=== PATIENT | female | born 1970 | race Caucasian/White ===

== ENCOUNTER 2017-12-22 01:22 | Emergency (ER) | payer OTHER ==
[~2017-12-22] VITALS: Ht 154.9 cm; Wt 70.3 kg
[2017-12-22 01:45] LABS: ABSOLUTE BASOPHILS 0.1 thou/uL (0.0-0.2); ABSOLUTE EOSINOPHILS 0.2 thou/uL (0.0-0.7); ABSOLUTE LYMPHOCYTES 3.4 thou/uL (0.8-5.3); ABSOLUTE MONOCYTES 0.4 thou/uL (0.0-1.2); ABSOLUTE NEUTROPHILS 2.9 thou/uL (1.6-8.1); EOSINOPHILS 2.6 %; HEMATOCRIT 43.9 % (37.0-47.0); HEMOGLOBIN 15.1 gm/dL (12.0-15.0); LYMPHOCYTES 48.6 %; MCHC 34.4 g/dL (28.0-37.0); MONOCYTES 6.4 %; MPV 9.4 fl. (7.2-11.1); NUCLEATED RBCS 0 /100WBC; PLATELET COUNT* 169 thou/uL (150-400); POLYS 41.4 %; RBC 4.72 mil/uL (4.20-5.00); RDW-CV 13.4 % (10.5-14.5)
[2017-12-22 02:05] LABS: ANION GAP 8 mmol/L (7-16); BUN 21 mg/dL (7-18); CALCIUM 8.7 mg/dL (8.5-10.1); CHLORIDE 106 mmol/L (98-107); CO2 26 mmol/L (21-32); CREATININE 0.9 mg/dL (0.6-1.3); GLUCOSE 103 mg/dL (70-99); POTASSIUM 3.8 mmol/L (3.5-5.1); SODIUM 140 mmol/L (136-145)
[2017-12-22 02:16] LABS: ALBUMIN 3.5 g/dL (3.4-5.0); ALKALINE PHOSPHATASE 50 U/L (46-116); LIPASE 264 U/L (73-393); NT-PRO BRAIN NAT PEPTIDE 72 pg/mL (<300); SGOT 24 U/L (15-37); SGPT 38 U/L (30-65); TOTAL BILIRUBIN 0.4 mg/dL (<0.1-1.0); TOTAL PROTEIN 6.6 g/dL (6.4-8.2); TROPONIN-I LEVEL <0.06 ng/mL (<0.06)
[2017-12-22 02:43] LABS: URINE BILIRUBIN NEGATIVE (Negative); URINE BLOOD NEGATIVE (Negative); URINE CLARITY CLEAR; URINE COLOR YELLOW; URINE GLUCOSE-RANDOM NEGATIVE (Negative); URINE KETONES NEGATIVE (Negative); URINE LEUKOCYTES-REFLEX NEGATIVE (Negative); URINE NITRITE-REFLEX NEGATIVE (Negative); URINE PROTEIN NEGATIVE (Negative); URINE SPECIFIC GRAVITY <= 1.005 (1.005-1.030); URINE UROBILINOGEN 0.2 E.U./dl (0.2-1.0)
[2017-12-22 02:52] LABS: AMP/METHAMP Negative (Negative); BARBITURATES Negative (Negative); BENZODIAZEPINES Negative (Negative); COCAINE Negative (Negative); METHADONE Negative (Negative); OPIATES POSITIVE (Negative); PCP Negative (Negative); THC Negative (Negative)
[2017-12-22] MEDS ORDERED: HYDROCODONE-AP1 EAC6 PO (05:58)
[2017-12-22] MEDS ORDERED: FLEXERIL PO (05:58)
[2017-12-22 06:15] VITALS: BP 121/62
[2017-12-22] MEDS ORDERED: IBUPROFEN 800800 MG PO (20:46)
--- NOTE | 2017-12-23 10:24 | EKG ---
[place] [address] ELECTROCARDIOGRAM REPORT Name: THOMAS MCCARTNEY Room: 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
== END 2017-12-22 06:15 | disposition home or self-care (01) ==
LOC: M.ERS 01:22
PROVIDERS: Emergency Medicine
DX: R07.89 Other chest pain (principal); F17.210 Nicotine dependence, cigarettes, uncomplicated; Z90.49 Acquired absence of other specified parts of digestive tract; Z98.890 Other specified postprocedural states; Z88.7 Allergy status to serum and vaccine

== ENCOUNTER 2017-12-22 17:42 | Emergency (ER) | payer OTHER ==
[~2017-12-22] VITALS: Ht 154.9 cm; Wt 70.3 kg
[~2017-12-22 17:42] MED LIST: FLEXERIL PO; HYDROCODONE-AP1 EAC6 PO
[2017-12-22 18:07] LABS: ABSOLUTE EOSINOPHILS 0.2 thou/uL (0.0-0.7); ABSOLUTE LYMPHOCYTES 2.4 thou/uL (0.8-5.3); ABSOLUTE MONOCYTES 0.3 thou/uL (0.0-1.2); ABSOLUTE NEUTROPHILS 3.2 thou/uL (1.6-8.1); BASOPHILS 0.7 %; EOSINOPHILS 2.6 %; HEMATOCRIT 45.2 % (37.0-47.0); HEMOGLOBIN 15.5 gm/dL (12.0-15.0); LYMPHOCYTES 39.2 %; MCH 32.1 pg (26.0-34.0); MCHC 34.3 g/dL (28.0-37.0); MCV 93.6 fL (80.0-100.0); MONOCYTES 5.3 %; MPV 9.3 fl. (7.2-11.1); NUCLEATED RBCS 0 /100WBC; PLATELET COUNT* 186 thou/uL (150-400); POLYS 52.2 %; RBC 4.82 mil/uL (4.20-5.00); RDW-CV 13.7 % (10.5-14.5); WBC 6.1 thou/uL (4.0-11.0)
[2017-12-22 18:15] LABS: CALCIUM 8.7 mg/dL (8.5-10.1); CREATININE 0.9 mg/dL (0.6-1.3); POTASSIUM 3.6 mmol/L (3.5-5.1)
[2017-12-22 18:26] LABS: ALBUMIN 3.6 g/dL (3.4-5.0); MAGNESIUM 2.2 mg/dL (1.8-2.4); TOTAL BILIRUBIN 0.5 mg/dL (<0.1-1.0); TOTAL PROTEIN 7.1 g/dL (6.4-8.2)
[2017-12-22] MEDS ORDERED: IBUPROFEN 800800 MG PO (20:46)
[2017-12-22 20:53] VITALS: BP 136/85
--- NOTE | 2017-12-23 10:23 | EKG ---
[place] [address] ELECTROCARDIOGRAM REPORT Name: THOMAS MCCARTNEY Room: 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 : 1970 Requested By: Jose Cifuentes Order Number: [id number] MD: Quincy Mendenhall Measurements Intervals [place] Rate: 83 P: 18 MA: 139 QRS: 55 QRSD: 98 T: 55 QT: 394 QTc: 463 Interpretive Statements Sinus rhythm Probable left atrial enlargement Baseline wander in lead(s) I,III,aVL No previous ECG available for comparison Electronically Signed On 12-23-2017 10:23:34 CDT by Quincy Mendenhall [email or web address] <ELECTRONICALLY SIGNED> By: Quincy Mendenhall MD, [facility] 12/23/17 1023 0126 0126 Quincy Mendenhall MD, [facility] /EPI
== END 2017-12-22 20:55 | disposition home or self-care (01) ==
LOC: M.ERS 17:42
PROVIDERS: Emergency Medicine Emergency Medical Services
DX: R07.89 Other chest pain (principal); F17.210 Nicotine dependence, cigarettes, uncomplicated; Z98.890 Other specified postprocedural states; Z90.49 Acquired absence of other specified parts of digestive tract; Z88.7 Allergy status to serum and vaccine